=== PATIENT | female | born 1935 | race Caucasian/White ===

== ENCOUNTER 2017-02-28 19:05 | Inpatient (IN) | payer MEDICARE, MEDICAID ==
[~2017-02-28] VITALS: Ht 165.1 cm; Wt 71.3 kg
--- NOTE | 2017-03-01 19:09 | ER ---
ADMIT: 02/28/2017 RM/LOC: 520 [facility] MR#: [id number] [address] [address] [place] [address] Emergency Room Report SEX: F AGE: 81 : 1935 DATE: 02/28/2017 ADDENDUM: Please refer to the main dictation by Harika Mckee. This is an addendum to that dictation. HISTORY OF PRESENT ILLNESS: The patient was signed off to me. The patient is an 81-year-old female. Allegedly, the patient has a history of hypertension and dementia and the patient tried to kick a box allegedly and fell down on the right hip and could not stand up because of the right hip pain. The patient denied any loss of consciousness allegedly or neck pain or back pain or chest pain. EMERGENCY ROOM COURSE: In the ER, the patient was in pain, pain was controlled. Pelvic imaging showed the patient had right superior and inferior pubic rami fracture. X-ray did not show any other abnormalities or free fluid in abdomen. The patient was hypoxic in the ER with low 80s O2 saturation on room air. The patient was put on nasal cannula. The patient had elevated white blood cell with left shift. Chest x-ray was questionable for bilateral infiltration with consideration that it was under inflated. CT scan of the chest did not show any pulmonary emboli. The patient is living in assisted living facility and after contacting them, she has not been on oxygen before and they also have no way to provide oxygen for the patient later on. After talking to Dr. Gagnon, the patient was admitted for further followups and treatments of the right superior and inferior pubic rami fracture, questionable pneumonia, hypoxia, ground-level fall. Lorne Hill MD/ eran JOB #: [id number] CC: Wale Andrade MD, Attending Physician Wale Andrade MD, Family Physician
--- NOTE | 2017-03-04 11:49 | CO ---
ADMIT: 03/01/2017 RM/LOC: 520 [facility] MR#: [id number] [address] [address] [place] [address] Consultation SEX: F AGE: 81 : 1935 DATE OF CONSULTATION: 03/01/2017 ATTENDING PHYSICIAN: Wale Andrade CONSULTING PHYSICIAN: Sebastian Tovar MD SUBJECTIVE: The patient is an 81-year-old white female, who fell last night. She was seen in the ER and admitted to the hospital with complaints of anterior hip pain. X-rays had showed pubic rami fractures. PHYSICAL EXAMINATION: Shows bilateral upper extremities move freely without any problems. She has no problems with knee, ankle, or lower leg. Range of motion on the right, hip flexion causes little pain in the anterior groin. No hip pain with left leg range of motion. RADIOLOGICAL DATA: X-rays AP pelvis and x-rays of the right hip show a nondisplaced, superior and inferior pubic rami fractures. ASSESSMENT AND PLAN: Right superior and inferior pubic rami fractures. At this point in time, no orthopedic surgical intervention is required. Best thing to do is let her weight bear as tolerated with a walker. We can follow her up in the office in 2 weeks for repeat x-rays. Sebastian Tovar MD/ eran JOB #: [id number] CC: Wale Andrade, Attending Physician Wale Andrade, Family Physician
[2017-03-05] MEDS ORDERED: CLARITIN DPS10 MG PO (14:33)
[2017-03-05] MEDS ORDERED: ARICEPT DPS5 MG PO (14:33)
[2017-03-05] MEDS ORDERED: ASA CHILDREN'S81 MG PO (14:33)
[2017-03-05] MEDS ORDERED: LACTAID FAS9000 UNIT PO (14:34)
[2017-03-05] MEDS ORDERED: FOSAMAX70 MG PO (14:34)
[2017-03-05] MEDS ORDERED: NORVASC DPS10 MG PO (14:35)
[2017-03-05] MEDS ORDERED: SYNTHROID DPS0.15 MG PO (14:35)
[2017-03-05] MEDS ORDERED: RISPERDAL2 MG PO (14:35)
[2017-03-05] MEDS ORDERED: OYSTER SHELL W250 MG PO (14:35)
[2017-03-05] MEDS ORDERED: PRILOSEC DPS20 MG PO (14:35)
[2017-03-05] MEDS ORDERED: TOPAMAX200 MG PO (14:36)
[2017-03-05] MEDS ORDERED: THERAPEUTIC MUL1 TAB PO (14:36)
[2017-03-05] MEDS ORDERED: VIMPAT100 MG PO (14:36)
[2017-03-05] MEDS ORDERED: TOPAMAX50 MG PO (14:36)
[2017-03-05] MEDS ORDERED: ZOCOR DPS20 MG PO (14:36)
[2017-03-05] MEDS ORDERED: ZOLOFT DPS50 MG PO (14:37)
[2017-03-05] MEDS ORDERED: PATANOL 0.1%5 ML OU (14:37)
[2017-03-05] MEDS ORDERED: NASONEX NASAL S17 GM NS (14:37)
[2017-03-05] MEDS ORDERED: MAALOX DPS30 ML PO (14:38)
[2017-03-05] MEDS ORDERED: HALLS3.2 MG PO (14:38)
[2017-03-05] MEDS ORDERED: COLACE-DPS100 MG PO (14:38)
[2017-03-05] MEDS ORDERED: LOMOTIL-DPS1 TAB PO (14:38)
[2017-03-05] MEDS ORDERED: ROBITUSSIN AC D30 ML PO (14:39)
[2017-03-05] MEDS ORDERED: [UNRECOGNIZED DRUG - OTHER] PO (14:39)
[2017-03-05] MEDS ORDERED: MILK OF MAGNESI10 ML PO (14:39)
[2017-03-05] MEDS ORDERED: ROBITUSSIN DM D30 ML PO (14:40)
[2017-03-05] MEDS ORDERED: TYLENOL #3 DPS1 TAB PO (14:40)
[2017-03-05] MEDS ORDERED: TYLENOL EXTRA500 M1 PO (14:41)
[2017-03-05] MEDS ORDERED: XANAX DPS0.25 MG PO (14:41)
[2017-03-05] MEDS ORDERED: SYSTANE GEL EYE10 ML OU (14:41)
[2017-03-05] MEDS ORDERED: LEVAQUIN DPS750 MG PO (14:45)
--- NOTE | 2017-03-06 08:19 | HP ---
ADMIT: 03/01/2017 RM/LOC: 520 [facility] MR#: [id number] [address] [address] [place] [address] History and Physical SEX: F AGE: 81 : 1935 DATE OF SERVICE: CHIEF COMPLAINT: Fall with subsequent pelvic fracture and possible pneumonia. HISTORY OF PRESENT ILLNESS: The patient is an 81-year-old white female, who currently lives at the [facility]. She had been in her usual state of health. Denied any illness or weakness. She was moving around in her closet in her room and tripped over the edge of a rug when she was trying to move a shoe box. She apparently fell and landed on the floor. She immediately had pain in her pelvis and was brought into the emergency room for evaluation. X-rays through the emergency department showed that she had a nondisplaced pelvic fracture. Also, noted was some possible pneumonia and an elevated white blood cell count. She is therefore being admitted for her pelvic fracture and probable pneumonia. PAST MEDICAL HISTORY: The patient has a history of irritable bowel syndrome, hypertension, allergic rhinitis, hypothyroidism, and heartburn. PAST SURGICAL HISTORY: She has had a previous left breast lumpectomy in 1998, subtotal thyroidectomy of the left portion of her thyroid gland in September 1999. Also, has had an EGD in 2007, which showed chronic mild gastritis. ALLERGIES: SULFA. MEDICATIONS: Current med list brought with her from the nursing facility shows: 1. Acetaminophen 500 mg 2 tabs every 6 hours as needed. 2. Aspirin 81 mg daily. 3. Amlodipine 10 mg daily. 4. Calcium with vitamin D 4 times daily. 5. Colace 100 mg b.i.d. 6. Donepezil 10 mg daily. 7. Durezol emulsion 0.05% drops 3 times daily in left eye. 8. Fosamax 70 mg once weekly. 9. Gatifloxacin 0.5% eyedrops 4 times daily in left eye. 10.Guaifenesin with codeine cough syrup 2 teaspoons every 6 hours as needed. 11.Cough drops as needed. 12.Lactase 3000 units as needed. 13.Levothyroxine 150 mcg daily. 14.Lomotil 1 tab every 6 hours as needed. 15.Loratadine 10 mg daily. 16.Maalox as needed. 17.Milk of Mag as needed. 18.Multivitamin once daily. 19.Nasonex 1-2 sprays in each nostril daily. 20.Omeprazole 20 mg b.i.d. 21.Patanol 2 drops twice daily in each eye. 22.Prolensa 0.07% drops for her eyes. 23.Robitussin as needed. ADMIT: 03/01/2017 RM/LOC: 520 [facility] MR#: [id number] [facility] [address] [address] [place] [address] History and Physical SEX: F AGE: 81 : 1935 24.Tylenol No. 3 one tab every 4 hours as needed. 25.Xanax 0.25 mg 1/2 to 1 tab every 4 hours as needed. 26.Zocor 20 mg daily. 27.Risperidone 6 mg daily. 28.Topamax 100 mg in the morning and Topamax 200 mg at bedtime. 29.Zoloft 50 mg at bedtime. SOCIAL HISTORY: The patient is currently residing at the [facility]. She has no history of smoking or alcohol use. Currently lives by herself in the nursing facility. FAMILY HISTORY: Unremarkable. REVIEW OF SYSTEMS: GENERAL: The patient has been feeling well until her fall. No prior fevers, chills, dizziness, or weakness. SKIN: Denies any bruising, rashes, or skin changes. HEENT: Denies any recent headaches, blurry vision, dizziness, or vertigo. She does have some chronic nasal congestion and allergies. RESPIRATORY: Denies cough, shortness of breath, wheezing, or sputum production. CARDIOVASCULAR: Well-controlled hypertension but no cardiac disease. Currently, no chest pain, palpitations, extremity edema. GASTROINTESTINAL: History of irritable bowel syndrome. Also, has a history of heartburn, which is well-controlled with Prilosec. Denies abdominal pain, nausea, vomiting, diarrhea, or constipation at the present time. GENITOURINARY: No urinary frequency, dysuria, or hematuria. NEUROLOGIC: No recent dizziness, fainting, or neurologic symptoms. PHYSICAL EXAMINATION: VITAL SIGNS: Most recent vitals include a temperature of 98.7, pulse 81 and regular, respiratory rate 20, blood pressure 130/67, O2 saturations 96% on 2 L per nasal cannula. GENERAL: The patient is alert and oriented. She is very pleasant and is not in acute distress. HEENT: Ears clear bilaterally. Oropharynx moist without erythema or tonsillar enlargement. NECK: Supple without lymphadenopathy or JVD. No thyroid enlargement or tenderness. LUNGS: Clear bilaterally without wheezes, rhonchi, or rales. HEART: Regular rate and rhythm without murmur, rub, or gallop. ABDOMEN: Soft, nontender, and nondistended. Good bowel sounds throughout. No masses. She does have some tenderness in the lower pelvic region. EXTREMITIES: On exam, extremities with functional range of motion. No clubbing, cyanosis, or edema. NEUROLOGIC: No focal deficits. LABORATORY AND X-RAY DATA: Admission labs included a CBC with elevated white count of 23.0, hemoglobin 13.4, platelet count 261. Sodium was 134, potassium 3.8, BUN 15, creatinine 0.7, glucose 134, troponin I less than 0.015. Chest x- ADMIT: 03/01/2017 RM/LOC: 520 [facility] MR#: [id number] [address] [address] [place] [address] History and Physical SEX: F AGE: 81 : 1935 ray at time of admission showed bilateral opacities suspicious for infiltrates. X-ray of the pelvis and hip show a fracture of the superior and inferior pubic rami with good alignment. No hip fracture or dislocation. Blood cultures drawn and pending. Admission EKG showed sinus rhythm. ASSESSMENT: 1. Pelvic fracture (superior and inferior pubic rami). 2. Community-acquired pneumonia. 3. Hypoxia. 4. Hypertension. PLAN: The patient has been admitted for her pelvic fracture and pneumonia. She is currently on 2 L of oxygen. We will start IV Levaquin on a daily basis and use incentive spirometry. PT and OT have been consulted for her fracture. We will also consult Ortho for this fracture, although there may be nothing surgical that would need to be done with this fracture being in good alignment. Social Work consult is also going to be obtained as she does live in an assisted living facility, and may need to have a longterm bed for rehab. Wale Andrade MD/ eran JOB #: [id number] CC: Wale Andrade, Attending Physician Wale Andrade, Family Physician
[2017-03-24] MEDS ORDERED: CALCIUM 500 +1 EAC1 PO (18:15)
[2017-03-24] MEDS ORDERED: ASA CHILDREN'S81 MG PO (18:15)
[2017-03-24] MEDS ORDERED: CLARITIN DPS10 MG PO (18:15)
[2017-03-24] MEDS ORDERED: ARICEPT10 MG PO (18:15)
[2017-03-24] MEDS ORDERED: PRILOSEC DPS20 MG PO (18:16)
[2017-03-24] MEDS ORDERED: SYNTHROID150 MCG PO (18:16)
[2017-03-24] MEDS ORDERED: FOSAMAX70 MG PO (18:16)
[2017-03-24] MEDS ORDERED: NORVASC DPS10 MG PO (18:16)
[2017-03-24] MEDS ORDERED: THERA1 EACH PO (18:17)
[2017-03-24] MEDS ORDERED: XARELTO15 MG PO (18:17)
[2017-03-24] MEDS ORDERED: ZOLOFT DPS50 MG PO (18:18)
[2017-03-24] MEDS ORDERED: PATANOL 0.1%5 ML OU (18:18)
[2017-03-24] MEDS ORDERED: NASONEX NASAL S17 GM IN (18:18)
[2017-03-24] MEDS ORDERED: ZOCOR DPS20 MG PO (18:18)
[2017-03-24] MEDS ORDERED: MAALOX DPS30 ML PO (18:19)
[2017-03-24] MEDS ORDERED: LOMOTIL 2.5-0.1 EACH PO (18:19)
[2017-03-24] MEDS ORDERED: COLACE-DPS100 MG PO (18:19)
[2017-03-24] MEDS ORDERED: LACTASE3000 UNIT PO (18:19)
[2017-03-24] MEDS ORDERED: MILK OF MAGNESI10 ML PO (18:20)
[2017-03-24] MEDS ORDERED: ROBITUSSIN AC D30 ML PO ×2 (18:20)
[2017-03-24] MEDS ORDERED: [UNRECOGNIZED DRUG - OTHER] PO (18:20)
[2017-03-24] MEDS ORDERED: ROBITUSSIN COU1 EACH PO (18:21)
[2017-03-24] MEDS ORDERED: TYLENOL #3 DPS1 TAB PO ×2 (18:21)
[2017-03-24] MEDS ORDERED: TYLENOL EXTRA500 M1 PO (18:23)
[2017-03-24] MEDS ORDERED: XANAX DPS0.25 MG PO (18:24)
[2017-03-24] MEDS ORDERED: TEARS NATURAL D15 ML OU (18:24)
[2017-04-04] MEDS ORDERED: XARELTO20 MG PO (09:08)
[2017-04-04] MEDS ORDERED: COLACE-DPS100 MG PO (09:11)
[2017-04-04] MEDS ORDERED: HALLS7.6 MG PO (09:13)
[2017-04-04] MEDS ORDERED: SYSTANE BALANCE10 ML OU (09:15)
[2017-04-04] MEDS ORDERED: LEVAQUIN DPS500 MG PO (09:17)
--- NOTE | 2017-04-23 19:06 | DS ---
ADMIT: 03/01/2017 RM/LOC: 520 [facility] MR#: [id number] [address] [facility] [address] [place], [place] [address] [place] [address] General Discharge Summary SEX: F AGE: 81 : 1935 ADMISSION DATE: 03/01/2017 DISCHARGE DATE: 03/04/2017 PRIMARY DIAGNOSES: 1. Pelvic fracture secondary to a fall (right inferior and superior pubic rami). 2. Decreased level of consciousness (secondary to medications that cause sedation). 3. Pneumonia/pleural effusion. 4. Hypoxia. 5. Hypertension. HISTORY OF PRESENT ILLNESS: The patient is an 81-year-old white female who was residing at the [facility] and had been in her usual state of health and denied any recent illness or weakness. She was moving around in her closet in her room and tripped over the edge of a rug when she was trying to move a shoebox. She apparently fell and landed on the floor. She had immediate pain in her pelvis and was brought into the emergency room for evaluation. X-rays through the Emergency Department showed that she had a nondisplaced pelvic fracture. Also, noted on chest x-ray was possibility of a pneumonia versus pleural effusion. She did have a mildly elevated white blood cell count and was therefore admitted for her pelvic fracture and possible pneumonia. PERTINENT LABORATORY AND X-RAY: Admission labs included a CBC with an elevated white count of 23.0, hemoglobin 13.4, and platelet count 261. Sodium 134, potassium 3.8, BUN 15, creatinine 0.7, and glucose 134. Troponin I less than 0.015. Chest x-ray showed bilateral opacities suspicious for infiltrates. X-ray of the pelvis and hip showed a fracture of the superior and inferior pubic rami with good alignment. No hip fracture or dislocation noted. Admission EKG showed sinus rhythm. MRI of the brain done on 03/03 showed advanced age related changes in the deep white matter and erna. No suspicious intracranial enhancement, bleeding, or masses noted. CT scan of the chest done on 02/28 showed no pulmonary emboli. There were some bibasilar pleural effusions, but no infiltrates noted. Prior to discharge on 03/04, chest x-ray showed slightly improved aeration in the left lung base. Blood cultures from time of admission showed no growth after 5 days. C-reactive protein prior to discharge had improved down to 6.65. Prior to discharge, her sodium was 134, potassium 3.2, BUN 21, creatinine 1.0, and glucose 136. Alkaline phosphatase 72, AST 14, and ALT 20. Magnesium 2.2. White blood cell count 12.7, hemoglobin 13.8, and platelet count 239. HOSPITAL COURSE: The patient was admitted from the emergency room on 02/28/2017. The patient was started on oral tramadol as needed for pain. PT was asked to evaluate and treat because of the pelvic fracture. Orthopedic consult was ordered for the pelvic fracture. I did ask Social Work to see this patient for assistance with discharge planning as she had been living on the assisted living side of the nursing facility and would likely need higher level of care because of her pelvic fracture and would need to be placed in ADMIT: 03/01/2017 RM/LOC: 520 [facility] MR#: [id number] [address] [place] [address] [place] [address] General Discharge Summary SEX: F AGE: 81 : 1935 the long term side of her facility. IV Levaquin 750 mg daily was ordered for a possibility of pneumonia. Dr. Sebastian Tovar did see this patient in consultation and did not feel that any surgical intervention was needed for the fracture. Activity as tolerated with use of a walker and assistance was ordered. It was noted that the patient did have some decreased level of consciousness during the hospitalization and was unable to follow commands. CT scan of the head was done, it did not show any evidence of stroke, bleed, or mass on 03/01/2017. It was noted that the patient was waxing and waning with her level of consciousness. At times, she would be quite lucid, awake, and talking to family members and at other times would be unable to open her eyes or follow commands. An MRI of her brain was done on 03/03/2017 and was normal/negative for acute intracranial problems. Speech Therapy was asked to see the patient on 03/03 to evaluate swallowing. Social Work did agree to having a long term bed available for the patient at the time of discharge. The patient was, therefore, set up to be discharged back to the nursing facility at [facility] on 03/04/2017. DISCHARGE INSTRUCTIONS: The patient was discharged back to the [facility], but was placed on the long term side rather than the assisted living side for her higher level of care. MEDICATIONS AT TIME OF DISCHARGE: Included: 1. Aricept 10 mg daily. 2. Aspirin 81 mg daily. 3. Claritin 10 mg daily. 4. Fosamax 70 mg weekly. 5. Lactaid as needed. 6. Norvasc 10 mg daily. 7. Calcium with Vitamin D 500 mg 4 times daily. 8. Omeprazole 20 mg b.i.d. 9. Synthroid 0.15 mg daily. 10.Therapeutic vitamin once daily. 11.Topamax 100 mg daily in the morning and Topamax 200 mg at bedtime. 12.Zocor 20 mg daily. 13.Zoloft 50 mg daily. 14.Nasonex spray, 2 sprays daily in each nostril. 15.Patanol eye drops. 16.Risperdal 6 mg daily. 17.Vimpat 50 mg b.i.d. As needed medications included: 1. [place] cough drops. 2. Colace. 3. Lomotil. 4. Maalox. 5. Milk of magnesia. 6. Phenergan VC With Codeine. 7. Robitussin AC. 8. Tylenol with Codeine. ADMIT: 03/01/2017 RM/LOC: 520 [facility] MR#: [id number] [address] [address] [place] [address] General Discharge Summary SEX: F AGE: 81 : 1935 9. Xanax 0.25 mg. 10.Systane eye drops. She is to continue Levaquin 750 mg daily for 10 additional days. RECOMMENDATIONS: She is to have activity and weightbearing as per orthopedic recommendations. She is to remain on a diet as recommended per Speech Therapy. PT, OT, and Speech Therapy will continue to evaluate this patient in the care home setting. She will need to have oxygen as needed to keep her saturations greater than 90%. Follow up with orthopedic physician on March 18. Follow up with Dr. Andrade in the office in 2 weeks. CODE STATUS: The patient is a DNR/DNI status. Wale Andrade MD/ eran JOB #: [id number] CC: Wale Andrade MD, Attending Physician Wale Andrade MD, Family Physician
== END 2017-03-04 12:00 | DRG 535 ==
LOC: ER 19:05 → 5MS 23:08
PROVIDERS: ADMIT Family Medicine
DX: S32.511A Fracture of superior rim of right pubis, initial encounter for closed fracture (principal); J18.9 Pneumonia, unspecified organism; S32.591A Other specified fracture of right pubis, initial encounter for closed fracture; W18.30XA Fall on same level, unspecified, initial encounter; Y92.122 Bedroom in nursing home as the place of occurrence of the external cause; I10 Essential (primary) hypertension; R12 Heartburn; F03.90 Unspecified dementia, unspecified severity, without behavioral disturbance, psychotic disturbance, mood disturbance, and anxiety; R09.02 Hypoxemia; Z79.82 Long term (current) use of aspirin